=== PATIENT | female | born 1940 | race Caucasian/White ===

== ENCOUNTER 2020-04-22 10:38 | Outpatient (CLI) | payer MEDICARE | END 2020-04-22 10:39 | disposition home or self-care (01) | LOC: BICULT 10:38 | PROVIDERS: ATTEND Urology | DX: R82.71 Bacteriuria (principal); R82.998 Other abnormal findings in urine; R31.29 Other microscopic hematuria; N28.1 Cyst of kidney, acquired | CPT/HCPCS: 76770 ==

== ENCOUNTER 2020-10-14 11:45 | Outpatient (CLI) | payer MEDICARE | END 2020-10-14 11:46 | disposition home or self-care (01) | LOC: BICMAMMO 11:45 | PROVIDERS: ATTEND Internal Medicine | DX: Z12.31 Encounter for screening mammogram for malignant neoplasm of breast (principal) | CPT/HCPCS: 77063; 77067 ==

== ENCOUNTER 2021-10-18 09:56 | Outpatient (CLI) | payer MEDICARE | END 2021-10-18 09:57 | disposition home or self-care (01) | LOC: BICMAMMO 09:56 | PROVIDERS: ATTEND Internal Medicine | DX: Z12.31 Encounter for screening mammogram for malignant neoplasm of breast (principal) | CPT/HCPCS: 77063; 77067 ==

== ENCOUNTER 2022-06-15 13:30 | Inpatient (IN) | payer MEDICARE ==
[2022-06-18 14:37] VITALS: BMI 22.3
[2022-06-18 15:10] LABS: Hemoglobin 11.6 g/dL (12.0-15.5); Mean Corpuscular HGB CONC 32.5 g/dL (32.0-36.0); Mean Corpuscular Hemoglobin 31.4 pg (27.0-33.0); Mean Corpuscular Volume 96.7 fl (81.6-98.3); Mean Platelet Volume 11.5 fl (7.4-10.4); Platelet Count 207 10x3/uL (150-450); RBC Distribution Width 13.5 % (11.5-14.5); Red Blood Cell (RBC) Count 3.69 10x6/uL (3.90-5.03); White Blood Cell (WBC) Count 4.6 10x3/uL (3.5-10.5)
[2022-06-18 15:24] LABS: PTT 25.6 sec (22.0-33.0); Prothrombin Time 10.3 sec (9.5-12.1)
[2022-06-18 15:25] LABS: Anion Gap 15 mmol/L (10-20); BUN (Urea Nitrogen) 26 mg/dL (9.8-20.1); Calc. Creatinine Clearance 0 mL/min (70-130); Calcium 11.2 mg/dL (7.8-10.44); Carbon Dioxide 30 mmol/L (23-31); Chloride 103 mmol/L (98-107); Estimated GFR 61; Glucose 89 mg/dL (83-110); Potassium 5.1 mmol/L (3.5-5.1); Sodium 143 mmol/L (136-145)
[2022-06-19] MEDS ORDERED: HYDROmorphone 2 MG/ML VIAL ONE (06:14)
[2022-06-19] MEDS ORDERED: Fentanyl 250 MCG/5 ML VIAL ONE (06:14)
[2022-06-19] MEDS ORDERED: Dexmedetomidine 200 MCG/2 ML VIAL ONE (06:15)
[2022-06-19] MEDS ORDERED: PHENYLEPHRINE-NS 100 MCG/ML 10 ML SYRINGE ONE ×2 (06:15→07:55)
[2022-06-19] MEDS ORDERED: Thrombin 5000 UNITS/5 ML VIAL ONE (06:29)
[2022-06-19] MEDS ORDERED: Vancomycin 1 GM VIAL ONE (06:29)
[2022-06-19] MEDS ORDERED: Bacitracin Zinc Ointment 30 gm TUBE ONE (06:30)
[2022-06-19] MEDS ORDERED: CEFAZOLIN 2 GM VIAL ONE (07:11)
[2022-06-19] MEDS ORDERED: Sodium Chloride 0.9% 100 ML ONE (07:11)
[2022-06-19] MEDS ORDERED: Famotidine/PF 20 mg/2ml Vial ONE (07:20)
[2022-06-19] MEDS ORDERED: Dexamethasone 20 MG/5 ML VIAL ONE (07:55)
[2022-06-19] MEDS ORDERED: Metoclopramide HCl 10 MG/2 ML VIAL ONE (07:55)
[2022-06-19] MEDS ORDERED: PROPOFOL 200 MG/20 ML VIAL ONE (07:55)
[2022-06-19] MEDS ORDERED: Ondansetron PF 4 MG/2 ML Vial ONE (07:55)
[2022-06-19] MEDS ORDERED: Rocuronium Bromide 10 MG/ML (10ML VIAL) ONE (07:55)
[2022-06-19] MEDS ORDERED: Lidocaine 1% PF 5 ML VIAL ONE (07:55)
[2022-06-19] MEDS ORDERED: SUGAMMADEX SODIUM 200 MG/2 ML VIAL ONE (11:35)
[2022-06-19] MEDS ORDERED: Promethazine HCl 25 MG/ML VIAL IM PRN (12:18)
[2022-06-19] MEDS ORDERED: PACU-Morphine 4MG/ML VIAL SLOW IVP PRN (12:18)
[2022-06-19] MEDS ORDERED: Meperidine HCl/PF 25 MG/ML VIAL SLOW IVP PRN (12:18)
[2022-06-19] MEDS ORDERED: Morphine Sulfate 2 MG/ML SYRINGE SLOW IVP PRN (12:18)
[2022-06-19] MEDS ORDERED: HYDROmorphone 2 MG/ML VIAL SLOW IVP PRN (12:18)
[2022-06-19] MEDS ORDERED: Ondansetron HCl/PF 4 MG/2 ML Vial IVP PRN (12:18)
[2022-06-19] MEDS ORDERED: diphenhydrAMINE 25 MG CAP PO PRN (12:21)
[2022-06-19] MEDS ORDERED: HYDROcodone/Acetaminophen 7.5/325 mg Tablet PO PRN (12:21)
[2022-06-19] MEDS ORDERED: Fentanyl 100 MCG/2 ML VIAL SLOW IVP PRN (12:21)
[2022-06-19] MEDS ORDERED: HYDROcodone/Acetaminophen 10/325 mg Tablet PO PRN (12:21)
[2022-06-19] MEDS ORDERED: fentaNYL 50 mcg/mL 1 mL Vial ONE ×2 (12:23→12:35)
[2022-06-19] MEDS ORDERED: Cepastat Lozenges 1 LOZ PO PRN (12:25)
[2022-06-19] MEDS ORDERED: Phenol 118 ML BOT PO PRN (12:25)
[2022-06-19] MEDS ORDERED: hydrALAZINE 20 MG/ML VIAL SLOW IVP PRN (12:26)
[2022-06-19] MEDS ORDERED: HYDROmorphone 0.5 MG/0.5 ML SYRINGE ONE (13:48)
[2022-06-19] MEDS: CEFAZOLIN 2 GM in Sodium Chloride 0.9% 100 ML IVPB SCH (17:02)
[2022-06-19] MEDS: Sodium Chloride 0.9% 1,000 ML IV SCH (17:08)
[2022-06-19] MEDS: Ketorolac Tromethamine 30 MG/ML VIAL IVP PRN (20:14)
[2022-06-19] MEDS: Acetaminophen 500 MG TAB PO SCH (22:29)
[2022-06-19] MEDS: Atorvastatin Calcium 40 MG TAB PO SCH (22:29)
[2022-06-19] MEDS: Docusate 100 MG CAP PO SCH (22:29)
[2022-06-20] MEDS: CEFAZOLIN 2 GM in Sodium Chloride 0.9% 100 ML IVPB SCH ×4 (00:24→23:33)
[2022-06-20] MEDS: Sodium Chloride 0.9% 1,000 ML IV SCH ×2 (01:21→14:51)
[2022-06-20 05:36] LABS: #Monocytes 0.8 thou/uL (0.11-0.59); #Neutrophils 5.3 thou/uL (1.40-6.50); %Basophils 0.1 % (0.0-1.0); %Lymphocytes 14.6 % (21.0-51.0); %Monocytes 10.6 % (0.0-10.0); %Neutrophils 74.4 % (42.0-75.0); Hemoglobin 9.3 g/dL (12.0-16.0); Mean Corpuscular Hemoglobin 30.3 pg (27.0-31.0); Mean Corpuscular Volume 97.7 fl (78.0-98.0); Mean Platelet Volume 11.3 fL (7.4-10.4); Platelet Count 169 10x3/uL (130-400); RBC Distribution Width 13.8 % (11.5-14.5); Red Blood Cell (RBC) Count 3.07 mill/uL (4.20-5.40); White Blood Cell (WBC) Count 7.1 10x3/uL (4.8-10.8)
[2022-06-20 05:58] LABS: Anion Gap 10 mmol/L (10-20); BUN (Urea Nitrogen) 25 mg/dL (9.8-20.1); Calc. Creatinine Clearance 50 mL/min (70-130); Calcium 9.2 mg/dL (7.8-10.44); Carbon Dioxide 27 mmol/L (23-31); Chloride 104 mmol/L (98-107); Estimated GFR 75; Glucose 102 mg/dL (83-110); Potassium 4.4 mmol/L (3.5-5.1); Sodium 137 mmol/L (136-145)
[2022-06-20] MEDS: Acetaminophen 325 MG TAB PO PRN ×2 (06:50→21:36)
[2022-06-20] MEDS: Calcium Carbonate 600 MG TAB PO SCH (10:00)
[2022-06-20] MEDS: Ascorbic Acid 500 mg Chewable Tablet PO SCH (10:00)
[2022-06-20] MEDS: Docusate 100 MG CAP PO SCH ×2 (10:00→20:17)
[2022-06-20] MEDS: Spironolactone 25 MG TAB PO SCH ×2 (10:01→10:03)
[2022-06-20] MEDS: Amlodipine 5 MG TAB PO SCH (10:04)
[2022-06-20] MEDS: Polyethylene Glycol 3350 17 GM Packet PO SCH (10:04)
[2022-06-20] MEDS: Losartan/Hydrochlorothiazide 100 mg/25 mg Tablet PO SCH (10:04)
[2022-06-20] MEDS: Ketorolac Tromethamine 30 MG/ML VIAL IVP PRN (15:16)
[2022-06-20] MEDS: Atorvastatin Calcium 40 MG TAB PO SCH (20:17)
[2022-06-20] MEDS: Acetaminophen 500 MG TAB PO SCH (20:17)
[2022-06-20] MEDS: traZODone HCl 50 MG TAB PO PRN (21:35)
[2022-06-21] MEDS: Sodium Chloride 0.9% 1,000 ML IV SCH ×2 (05:58→16:23)
[2022-06-21] MEDS: Polyethylene Glycol 3350 17 GM Packet PO SCH (09:06)
[2022-06-21] MEDS: CEFAZOLIN 2 GM in Sodium Chloride 0.9% 100 ML IVPB SCH (09:06)
[2022-06-21] MEDS: Calcium Carbonate 600 MG TAB PO SCH (09:07)
[2022-06-21] MEDS: Spironolactone 25 MG TAB PO SCH (09:07)
[2022-06-21] MEDS: Amlodipine 5 MG TAB PO SCH (09:07)
[2022-06-21] MEDS: Ascorbic Acid 500 mg Chewable Tablet PO SCH (09:07)
[2022-06-21] MEDS: Losartan/Hydrochlorothiazide 100 mg/25 mg Tablet PO SCH (09:07)
[2022-06-21] MEDS: Docusate 100 MG CAP PO SCH ×2 (09:08→20:28)
[2022-06-21] MEDS: Ondansetron PF 4 MG/2 ML Vial IVP PRN ×2 (12:35→21:31)
[2022-06-21] MEDS: Atorvastatin Calcium 40 MG TAB PO SCH (20:28)
[2022-06-21] MEDS: Acetaminophen 500 MG TAB PO SCH (20:28)
[2022-06-21] MEDS: Acetaminophen 325 MG TAB PO PRN (22:25)
[2022-06-21] MEDS: traZODone HCl 50 MG TAB PO PRN (22:25)
[2022-06-22] MEDS: Polyethylene Glycol 3350 17 GM Packet PO SCH (08:24)
[2022-06-22] MEDS: Losartan/Hydrochlorothiazide 100 mg/25 mg Tablet PO SCH (08:24)
[2022-06-22] MEDS: Sodium Chloride 0.9% 1,000 ML IV SCH ×2 (08:24→22:07)
[2022-06-22] MEDS: Calcium Carbonate 600 MG TAB PO SCH (08:24)
[2022-06-22] MEDS: Amlodipine 5 MG TAB PO SCH (08:25)
[2022-06-22] MEDS: Ascorbic Acid 500 mg Chewable Tablet PO SCH (08:25)
[2022-06-22] MEDS: Spironolactone 25 MG TAB PO SCH (08:25)
[2022-06-22] MEDS: Docusate 100 MG CAP PO SCH ×2 (08:25→20:05)
[2022-06-22] MEDS: tiZANidine HCl 4 MG TAB PO PRN ×2 (09:43→20:06)
[2022-06-22] MEDS: Atorvastatin Calcium 40 MG TAB PO SCH (20:05)
[2022-06-22] MEDS: Acetaminophen 500 MG TAB PO SCH (20:05)
[2022-06-22] MEDS: Ketorolac Tromethamine 30 MG/ML VIAL IVP PRN (21:41)
[2022-06-22] MEDS: traZODone HCl 50 MG TAB PO PRN (21:43)
[2022-06-23] MEDS: Losartan/Hydrochlorothiazide 100 mg/25 mg Tablet PO SCH (09:16)
[2022-06-23] MEDS: Calcium Carbonate 600 MG TAB PO SCH (09:16)
[2022-06-23] MEDS: Polyethylene Glycol 3350 17 GM Packet PO SCH (09:16)
[2022-06-23] MEDS: Amlodipine 5 MG TAB PO SCH (09:17)
[2022-06-23] MEDS: Docusate 100 MG CAP PO SCH ×2 (09:17→21:47)
[2022-06-23] MEDS: Ascorbic Acid 500 mg Chewable Tablet PO SCH (09:17)
[2022-06-23] MEDS: Spironolactone 25 MG TAB PO SCH (09:17)
[2022-06-23] MEDS: Sodium Chloride 0.9% 1,000 ML IV SCH ×2 (10:36→23:22)
[2022-06-23] MEDS: Atorvastatin Calcium 40 MG TAB PO SCH (21:47)
[2022-06-23] MEDS: Acetaminophen 500 MG TAB PO SCH (21:47)
[2022-06-23] MEDS: traZODone HCl 50 MG TAB PO PRN (21:47)
[2022-06-24] MEDS: tiZANidine HCl 4 MG TAB PO PRN ×2 (05:27→18:41)
[2022-06-24] MEDS ORDERED: Milk Of Magnesia 30 ML UDCUP PO PRN (08:35)
[2022-06-24] MEDS: Spironolactone 25 MG TAB PO SCH (10:09)
[2022-06-24] MEDS: Amlodipine 5 MG TAB PO SCH (10:10)
[2022-06-24] MEDS: Ascorbic Acid 500 mg Chewable Tablet PO SCH (10:10)
[2022-06-24] MEDS: Docusate 100 MG CAP PO SCH ×2 (10:10→20:53)
[2022-06-24] MEDS: Polyethylene Glycol 3350 17 GM Packet PO SCH (10:11)
[2022-06-24] MEDS: Calcium Carbonate 600 MG TAB PO SCH (10:11)
[2022-06-24] MEDS: Losartan/Hydrochlorothiazide 100 mg/25 mg Tablet PO SCH (10:11)
[2022-06-24] MEDS: Sodium Chloride 0.9% 1,000 ML IV SCH (10:26)
[2022-06-24] MEDS: traZODone HCl 50 MG TAB PO PRN (20:53)
[2022-06-24] MEDS: Acetaminophen 500 MG TAB PO SCH (20:53)
[2022-06-24] MEDS: Atorvastatin Calcium 40 MG TAB PO SCH (20:53)
[2022-06-25] MEDS: Sodium Chloride 0.9% 1,000 ML IV SCH ×2 (01:09→17:12)
[2022-06-25] MEDS: Losartan/Hydrochlorothiazide 100 mg/25 mg Tablet PO SCH (08:46)
[2022-06-25] MEDS: Amlodipine 5 MG TAB PO SCH (08:47)
[2022-06-25] MEDS: Calcium Carbonate 600 MG TAB PO SCH (08:49)
[2022-06-25] MEDS: Docusate 100 MG CAP PO SCH (08:49)
[2022-06-25] MEDS: Spironolactone 25 MG TAB PO SCH (08:49)
[2022-06-25] MEDS: Ascorbic Acid 500 mg Chewable Tablet PO SCH (08:50)
[2022-06-25] MEDS: Polyethylene Glycol 3350 17 GM Packet PO SCH (09:03)
[2022-06-25] MEDS: tiZANidine HCl 4 MG TAB PO PRN (13:19)
[2022-06-25 15:49] VITALS: BP 111/71; TEMP 97.4
== END 2022-06-25 20:10 | DRG 454 ==
LOC: SURG A 06-19 05:47 → SURG B 06-19 15:59
PROVIDERS: ADMIT Surgery; ATTEND Surgery
PROC: 0RG2070 Fusion of 2 or more Cervical Vertebral Joints with Autologous Tissue Substitute, Anterior Approach, Anterior Column, Open Approach (ICD-10-PCS; principal; 2022-06-19)
PROC: 0RG20K1 Fusion of 2 or more Cervical Vertebral Joints with Nonautologous Tissue Substitute, Posterior Approach, Posterior Column, Open Approach (ICD-10-PCS; 2022-06-19)
PROC: 0RB30ZZ Excision of Cervical Vertebral Disc, Open Approach (ICD-10-PCS; 2022-06-19)
PROC: 01N10ZZ Release Cervical Nerve, Open Approach (ICD-10-PCS; 2022-06-19)
DX: M48.02 Spinal stenosis, cervical region (principal); G95.9 Disease of spinal cord, unspecified; M50.021 Cervical disc disorder at C4-C5 level with myelopathy; M50.121 Cervical disc disorder at C4-C5 level with radiculopathy; E78.5 Hyperlipidemia, unspecified; I10 Essential (primary) hypertension; R49.0 Dysphonia; Z90.710 Acquired absence of both cervix and uterus; Z79.82 Long term (current) use of aspirin
CPT/HCPCS: 36415; 80048; 85025; 85027; 85610; 85730; 86850; 86900; 86901; 93005; 93010; 93970; C1713; C1768; C1776; J1100; J1170; J1885; J2405; J2704; J2765; J3010; J3370; J3490; J7050; S0028

== ENCOUNTER 2022-06-18 13:20 | Outpatient (CLI) | payer MEDICARE | END 2022-06-18 13:21 | disposition home or self-care (01) | LOC: LABBT 13:20 | PROVIDERS: ATTEND Surgery | DX: Z01.810 Encounter for preprocedural cardiovascular examination (principal); M48.02 Spinal stenosis, cervical region; G95.9 Disease of spinal cord, unspecified; M54.12 Radiculopathy, cervical region | CPT/HCPCS: 93005; 93010 ==

== ENCOUNTER 2022-10-30 13:22 | Outpatient (CLI) | payer MEDICARE | END 2022-10-30 13:23 | disposition home or self-care (01) | LOC: BICMAMMO 13:22 | PROVIDERS: ATTEND Internal Medicine | DX: Z12.31 Encounter for screening mammogram for malignant neoplasm of breast (principal); Z80.3 Family history of malignant neoplasm of breast | CPT/HCPCS: 77063; 77067 ==

== ENCOUNTER 2022-11-23 11:48 | Outpatient (CLI) | payer MEDICARE | END 2022-11-23 11:49 | disposition home or self-care (01) | LOC: BICRAD 11:48 | PROVIDERS: ATTEND Family Medicine | DX: M47.816 Spondylosis without myelopathy or radiculopathy, lumbar region (principal); W19.XXXA Unspecified fall, initial encounter; M41.9 Scoliosis, unspecified; M47.815 Spondylosis without myelopathy or radiculopathy, thoracolumbar region; M85.88 Other specified disorders of bone density and structure, other site | CPT/HCPCS: 72100 ==

== ENCOUNTER 2023-02-28 13:19 | Outpatient (CLI) | payer MEDICARE | END 2023-02-28 13:20 | disposition home or self-care (01) | LOC: BICCT 13:19 | PROVIDERS: ATTEND Surgery | DX: M48.02 Spinal stenosis, cervical region (principal); R26.89 Other abnormalities of gait and mobility; M47.812 Spondylosis without myelopathy or radiculopathy, cervical region; M47.813 Spondylosis without myelopathy or radiculopathy, cervicothoracic region; Z98.1 Arthrodesis status | CPT/HCPCS: 72125; 72141 ==

== ENCOUNTER 2023-03-14 23:18 | Inpatient (IN) | payer MEDICARE ==
[2023-03-14] MEDS ORDERED: Ondansetron PF 4 MG/2 ML Vial ONE (23:48)
[2023-03-14] MEDS ORDERED: Morphine 4 MG/ML VIAL ONE (23:48)
[2023-03-15] MEDS ORDERED: Ondansetron PF 4 MG/2 ML Vial IVP PRN (02:51)
[2023-03-15] MEDS ORDERED: Acetaminophen 500 MG TAB PO PRN (02:51)
[2023-03-15 03:04] VITALS: BMI 23.6
[2023-03-15] MEDS: Sodium Chloride 0.9% 1,000 ML IV SCH (03:32)
[2023-03-15] MEDS: Morphine 4 MG/ML VIAL SLOW IVP SCH (03:32)
[2023-03-15] MEDS: traMADol HCl 50 MG TAB PO PRN (03:33)
[2023-03-15 05:01] LABS: #Monocytes 0.4 thou/uL (0.11-0.59); #Neutrophils 6.5 thou/uL (1.40-6.50); %Basophils 0.3 % (0.0-1.0); %Lymphocytes 9.3 % (21.0-51.0); %Monocytes 5.5 % (0.0-10.0); %Neutrophils 84.5 % (42.0-75.0); Hematocrit 27.4 % (36.0-47.0); Hemoglobin 8.9 g/dL (12.0-16.0); Mean Corpuscular HGB CONC 32.5 g/dL (32.0-36.0); Mean Corpuscular Volume 98.6 fl (78.0-98.0); Mean Platelet Volume 11.3 fL (7.4-10.4); Platelet Count 176 10x3/uL (130-400); RBC Distribution Width 13.6 % (11.5-14.5); Red Blood Cell (RBC) Count 2.78 mill/uL (4.20-5.40); White Blood Cell (WBC) Count 7.6 10x3/uL (4.8-10.8)
[2023-03-15 05:26] LABS: ALT (SGPT) 30 U/L (8-55); AST (SGOT) 31 U/L (5-34); Albumin 3.8 g/dL (3.4-4.8); Alkaline Phosphatase 68 U/L (40-110); Anion Gap 9 mmol/L (10-20); BUN (Urea Nitrogen) 33 mg/dL (9.8-20.1); Bilirubin, Total 0.4 mg/dL (0.2-1.2); Calc. Creatinine Clearance 50 mL/min (70-130); Calcium 9.8 mg/dL (7.8-10.44); Carbon Dioxide 31 mmol/L (23-31); Chloride 104 mmol/L (98-107); Estimated GFR 73; Globulin 2.5 g/dL (2.4-3.5); Glucose 116 mg/dL (83-110); Protein, Total 6.3 g/dL (5.8-8.1); Sodium 140 mmol/L (136-145)
[2023-03-15 07:53] LABS: #Monocytes 0.4 thou/uL (0.11-0.59); %Basophils 0.3 % (0.0-1.0); %Lymphocytes 12.4 % (21.0-51.0); %Monocytes 6.9 % (0.0-10.0); %Neutrophils 80.1 % (42.0-75.0); Hematocrit 26.6 % (36.0-47.0); Hemoglobin 8.5 g/dL (12.0-16.0); Mean Corpuscular Hemoglobin 31.5 pg (27.0-31.0); Mean Corpuscular Volume 98.5 fl (78.0-98.0); Mean Platelet Volume 11.1 fL (7.4-10.4); Platelet Count 171 10x3/uL (130-400); RBC Distribution Width 13.6 % (11.5-14.5); White Blood Cell (WBC) Count 6.2 10x3/uL (4.8-10.8)
[2023-03-15 08:11] LABS: INR-International Normal Ratio 1.1; PTT 30.5 sec (22.9-36.1); Prothrombin Time 13.9 sec (12.0-14.7)
[2023-03-15] MEDS ORDERED: CEFAZOLIN 2 GM in Sodium Chloride 0.9% 100 ML IVPB SCH (09:00)
[2023-03-15] MEDS ORDERED: CEFAZOLIN 2 GM VIAL ONE (12:05)
[2023-03-15] MEDS ORDERED: Sodium Chloride 0.9% 100 ML ONE (12:05)
[2023-03-15] MEDS ORDERED: PROPOFOL 20 ML ONE (12:18)
[2023-03-15] MEDS ORDERED: Lidocaine 1% PF 5 ML VIAL ONE (12:18)
[2023-03-15] MEDS ORDERED: Ondansetron PF 4 MG/2 ML Vial ONE (12:18)
[2023-03-15] MEDS ORDERED: fentaNYL PF 100 MCG/2 ML SYRINGE ONE (12:19)
[2023-03-15] MEDS ORDERED: ePHEDrine Sulfate 50 MG/10 ML VIAL ONE (14:12)
[2023-03-15] MEDS: Ketorolac Tromethamine 30 MG (1 mL) VIAL IVP SCH ×2 (15:50→20:47)
[2023-03-15 19:51] LABS: #Monocytes 0.8 thou/uL (0.11-0.59); #Neutrophils 5.1 thou/uL (1.40-6.50); %Basophils 0.4 % (0.0-1.0); %Eosinophils 0.2 % (0.0-10.0); %Lymphocytes 27.6 % (21.0-51.0); %Monocytes 9.6 % (0.0-10.0); Hematocrit 25.3 % (36.0-47.0); Hemoglobin 7.5 g/dL (12.0-16.0); Mean Corpuscular HGB CONC 29.6 g/dL (32.0-36.0); Mean Corpuscular Hemoglobin 31.9 pg (27.0-31.0); Mean Platelet Volume 11.4 fL (7.4-10.4); Platelet Count 136 10x3/uL (130-400); RBC Distribution Width 13.8 % (11.5-14.5); Red Blood Cell (RBC) Count 2.35 mill/uL (4.20-5.40); White Blood Cell (WBC) Count 8.3 10x3/uL (4.8-10.8)
[2023-03-15 19:59] LABS: Mean Corpuscular Volume 107.7 fl (78.0-98.0)
[2023-03-15] MEDS: Rosuvastatin 20 MG TAB PO SCH (20:47)
[2023-03-15] MEDS: CEFAZOLIN 2 GM in Sodium Chloride 0.9% 100 ML IVPB SCH (20:48)
[2023-03-15] MEDS: traZODone HCl 50 MG TAB PO SCH (20:48)
[2023-03-16] MEDS: Morphine 2 MG/ML VIAL SLOW IVP PRN (00:41)
[2023-03-16 07:51] LABS: #Monocytes 0.5 thou/uL (0.11-0.59); #Neutrophils 3.6 thou/uL (1.40-6.50); %Basophils 0.4 % (0.0-1.0); %Eosinophils 0.4 % (0.0-10.0); %Lymphocytes 16.5 % (21.0-51.0); %Monocytes 9.4 % (0.0-10.0); %Neutrophils 73.1 % (42.0-75.0); Hematocrit 23.4 % (36.0-47.0); Hemoglobin 7.6 g/dL (12.0-16.0); Mean Corpuscular HGB CONC 32.5 g/dL (32.0-36.0); Mean Corpuscular Hemoglobin 31.7 pg (27.0-31.0); Mean Platelet Volume 11.5 fL (7.4-10.4); Platelet Count 124 10x3/uL (130-400); RBC Distribution Width 14.2 % (11.5-14.5)
[2023-03-16 08:15] LABS: Mean Corpuscular Volume 97.5 fl (78.0-98.0)
[2023-03-16] MEDS: Ascorbic Acid 500 mg Chewable Tablet PO SCH (08:35)
[2023-03-16] MEDS: Ezetimibe 10 MG TAB PO SCH (08:35)
[2023-03-16] MEDS: Mirabegron ER 25 MG ER.TAB PO SCH (08:35)
[2023-03-16] MEDS: Amlodipine 5 MG TAB PO SCH (08:39)
[2023-03-16] MEDS: traMADol HCl 50 MG TAB PO PRN (09:18)
[2023-03-16] MEDS: HYDROcodone/Acetaminophen 5/325 mg Tablet PO PRN (11:59)
[2023-03-16] MEDS: Acetaminophen 325 MG TAB PO SCH (12:00)
[2023-03-16] MEDS: Melatonin 3 MG TAB PO PRN (21:00)
[2023-03-17 04:58] LABS: Hematocrit 19.8 % (36.0-47.0); Hemoglobin 6.4 g/dL (12.0-16.0)
[2023-03-17] MEDS: Cyclobenzaprine 10 MG TAB PO PRN (09:57)
[2023-03-17] MEDS: Melatonin 3 MG TAB PO SCH (20:48)
[2023-03-17] MEDS: Senokot S 8.6-50 MG TAB PO SCH (20:49)
[2023-03-18 05:26] LABS: #Eosinphils 0.1 thou/uL (0.0-0.7); #Monocytes 0.5 thou/uL (0.11-0.59); #Neutrophils 1.8 thou/uL (1.40-6.50); %Basophils 0.5 % (0.0-1.0); %Eosinophils 2.1 % (0.0-10.0); %Lymphocytes 37.1 % (21.0-51.0); %Monocytes 12.3 % (0.0-10.0); %Neutrophils 47.7 % (42.0-75.0); Hematocrit 28.3 % (36.0-47.0); Mean Corpuscular HGB CONC 33.6 g/dL (32.0-36.0); Mean Corpuscular Hemoglobin 30.6 pg (27.0-31.0); Mean Corpuscular Volume 91.3 fl (78.0-98.0); Mean Platelet Volume 10.9 fL (7.4-10.4); Platelet Count 118 10x3/uL (130-400); RBC Distribution Width 15.5 % (11.5-14.5); White Blood Cell (WBC) Count 3.8 10x3/uL (4.8-10.8)
[2023-03-18 05:27] LABS: Hemoglobin 9.5 g/dL (12.0-16.0)
[2023-03-18 05:52] LABS: Anion Gap 6 mmol/L (10-20); BUN (Urea Nitrogen) 19 mg/dL (9.8-20.1); Calc. Creatinine Clearance 63 mL/min (70-130); Calcium 8.7 mg/dL (7.8-10.44); Carbon Dioxide 30 mmol/L (23-31); Chloride 105 mmol/L (98-107); Estimated GFR 87; Glucose 93 mg/dL (83-110); Potassium 3.9 mmol/L (3.5-5.1); Sodium 137 mmol/L (136-145)
[2023-03-18] MEDS: Polyethylene Glycol 3350 17 GM Packet PO SCH (08:27)
[2023-03-18] MEDS ORDERED: Enoxaparin 40 MG (0.4 mL) SYRINGE SC SCH (09:00)
[2023-03-19 05:24] LABS: Hematocrit 26.5 % (36.0-47.0); Hemoglobin 8.8 g/dL (12.0-16.0)
[2023-03-19] MEDS: Enoxaparin 40 MG (0.4 mL) SYRINGE SC SCH (08:55)
[2023-03-20] MEDS ORDERED: hydrALAZINE 20 MG/ML VIAL SLOW IVP PRN (14:07)
[2023-03-21 07:34] VITALS: BP 148/71; TEMP 98.1
== END 2023-03-21 11:50 | disposition swing bed (61) | DRG 481 ==
LOC: ERS 23:18 → SURG B 03-15 01:18
PROVIDERS: ADMIT Student in an Organized Health Care Education/Training Program; ATTEND Student in an Organized Health Care Education/Training Program
PROC: 0QSC06Z Reposition Left Lower Femur with Intramedullary Internal Fixation Device, Open Approach (ICD-10-PCS; principal; 2023-03-15)
PROC: 0QSB06Z Reposition Right Lower Femur with Intramedullary Internal Fixation Device, Open Approach (ICD-10-PCS; 2023-03-15)
PROC: 30233N1 Transfusion of Nonautologous Red Blood Cells into Peripheral Vein, Percutaneous Approach (ICD-10-PCS; 2023-03-16)
DX: S72.402A Unspecified fracture of lower end of left femur, initial encounter for closed fracture (principal); D62 Acute posthemorrhagic anemia; G95.89 Other specified diseases of spinal cord; S72.401A Unspecified fracture of lower end of right femur, initial encounter for closed fracture; W18.30XA Fall on same level, unspecified, initial encounter; Z79.899 Other long term (current) drug therapy; E78.5 Hyperlipidemia, unspecified; I10 Essential (primary) hypertension; Z96.653 Presence of artificial knee joint, bilateral; Z98.49 Cataract extraction status, unspecified eye; Z90.710 Acquired absence of both cervix and uterus
CPT/HCPCS: 36415; 36430; 71045; 80048; 80053; 85014; 85018; 85025; 85610; 85730; 86850; 86900; 86901; 93005; 96374; 96375; C1713; J1650; J1885; J2270; J2272; J2405; J2704; J3490; J7050; P9016

== ENCOUNTER 2023-11-07 13:53 | Outpatient (CLI) | payer MEDICARE | END 2023-11-07 13:54 | disposition home or self-care (01) | LOC: BICMAMMO 13:53 | PROVIDERS: ATTEND Physician Assistant | DX: Z12.31 Encounter for screening mammogram for malignant neoplasm of breast (principal); Z80.3 Family history of malignant neoplasm of breast | CPT/HCPCS: 77067 ==

== ENCOUNTER 2024-02-14 13:10 | Outpatient (CLI) | payer MEDICARE ==
[2024-02-14 14:14] LABS: #Basophils Less than 0.03 10x3/uL (0.0-0.2); #Eosinophils Less than 0.03 10x3/uL (0.0-0.7); %Basophils 0.6 % (0.0-1.0); %Eosinophils 0.6 % (0.0-10.0); %Lymphocytes 39.4 % (21.0-51.0); %Monocytes 9.3 % (0.0-10.0); %Neutrophils 49.8 % (42.0-75.0); Hematocrit 35.5 % (36.0-47.0); Hemoglobin 11.5 g/dL (12.0-16.0); Mean Corpuscular HGB CONC 32.4 g/dL (32.0-36.0); Mean Corpuscular Hemoglobin 31.2 pg (27.0-31.0); Mean Corpuscular Volume 96.2 fL (78.0-98.0); Mean Platelet Volume 11.4 fL (7.4-10.4); Platelet Count 149 10x3/uL (130-400); RBC Distribution Width 13.8 % (11.5-14.5); Red Blood Cell (RBC) Count 3.69 mill/uL (4.20-5.40)
[2024-02-14 14:31] LABS: Anion Gap 11 mmol/L (10-20); BUN (Urea Nitrogen) 20 mg/dL (9.8-20.1); Calc. Creatinine Clearance 0 mL/min (70-130); Carbon Dioxide 29 mmol/L (23-31); Chloride 105 mmol/L (98-107); Potassium 4.4 mmol/L (3.5-5.1); Sodium 141 mmol/L (136-145)
[2024-02-14 14:32] LABS: Calcium 10.1 mg/dL (7.8-10.44); Estimated GFR 79; Glucose 104 mg/dL (83-110)
== END 2024-02-14 13:11 | disposition home or self-care (01) ==
LOC: LABBT 13:10
PROVIDERS: ATTEND Orthopaedic Surgery Hand Surgery
DX: Z01.818 Encounter for other preprocedural examination (principal); G56.02 Carpal tunnel syndrome, left upper limb; M65.342 Trigger finger, left ring finger; M65.332 Trigger finger, left middle finger; M72.0 Palmar fascial fibromatosis [Dupuytren]; M24.542 Contracture, left hand
CPT/HCPCS: 80048; 85025; 93005; 93010

== ENCOUNTER 2024-02-18 06:28 | Day surgery (SDC) | payer MEDICARE ==
[2024-02-14 13:30] VITALS: BMI 24.0
[2024-02-18] MEDS ORDERED: Dexamethasone 4 mg/ml Vial ONE (09:46)
[2024-02-18] MEDS ORDERED: Ondansetron PF 4 MG/2 ML Vial ONE (09:46)
[2024-02-18] MEDS ORDERED: PROPOFOL 20 ML ONE ×2 (09:46→13:58)
[2024-02-18] MEDS ORDERED: fentaNYL PF 100 MCG/2 ML SYRINGE ONE ×2 (09:46→15:39)
[2024-02-18] MEDS ORDERED: Bacitracin Zinc Ointment 30 gm TUBE ONE (10:53)
[2024-02-18] MEDS ORDERED: Bupivacaine PF 0.5% 30 ML VIAL ONE (10:53)
[2024-02-18] MEDS ORDERED: CEFAZOLIN 2 GM VIAL ONE (11:55)
[2024-02-18] MEDS ORDERED: Vasopressin 20 UNITS/ML VIAL ONE (12:15)
[2024-02-18] MEDS ORDERED: Glycopyrrolate 0.2 MG/ML 5 ML SYRINGE ONE (13:58)
[2024-02-18] MEDS ORDERED: ePHEDrine Sulfate 50 MG/10 ML VIAL ONE (13:59)
== END 2024-02-18 15:32 | disposition home or self-care (01) ==
LOC: SDC 06:28
PROVIDERS: ATTEND Orthopaedic Surgery Hand Surgery
PROC: 0LN80ZZ Release Left Hand Tendon, Open Approach (ICD-10-PCS; principal; 2024-02-18)
PROC: 0LN80ZZ Release Left Hand Tendon, Open Approach (ICD-10-PCS; 2024-02-18)
PROC: 0LN80ZZ Release Left Hand Tendon, Open Approach (ICD-10-PCS; 2024-02-18)
PROC: 0LN80ZZ Release Left Hand Tendon, Open Approach (ICD-10-PCS; 2024-02-18)
PROC: 01N50ZZ Release Median Nerve, Open Approach (ICD-10-PCS; 2024-02-18)
PROC: 0JBK0ZZ Excision of Left Hand Subcutaneous Tissue and Fascia, Open Approach (ICD-10-PCS; 2024-02-18)
DX: G56.02 Carpal tunnel syndrome, left upper limb (principal); M65.342 Trigger finger, left ring finger; M65.332 Trigger finger, left middle finger; M72.0 Palmar fascial fibromatosis [Dupuytren]; E78.00 Pure hypercholesterolemia, unspecified; G56.22 Lesion of ulnar nerve, left upper limb; R25.2 Cramp and spasm; M24.50 Contracture, unspecified joint; M54.12 Radiculopathy, cervical region; G96.9 Disorder of central nervous system, unspecified; I10 Essential (primary) hypertension; Z90.710 Acquired absence of both cervix and uterus; Z98.890 Other specified postprocedural states; Z79.899 Other long term (current) drug therapy
CPT/HCPCS: 26055 ×2; 26123; 64642; 64721; A6223; J0585; J0665; J1100; J2405; J2704

== ENCOUNTER 2024-09-16 08:21 | Outpatient (CLI) | payer MEDICARE | END 2024-09-16 08:22 | disposition home or self-care (01) | LOC: CT 08:21 | PROVIDERS: ATTEND Orthopaedic Surgery Hand Surgery | DX: M47.812 Spondylosis without myelopathy or radiculopathy, cervical region (principal); I67.9 Cerebrovascular disease, unspecified; G96.9 Disorder of central nervous system, unspecified; Z98.890 Other specified postprocedural states | CPT/HCPCS: 72125 ==

== ENCOUNTER 2024-11-09 10:52 | Outpatient (CLI) | payer MEDICARE | END 2024-11-09 10:53 | disposition home or self-care (01) | LOC: BICMAMMO 10:52 | PROVIDERS: ATTEND Physician Assistant | DX: Z12.31 Encounter for screening mammogram for malignant neoplasm of breast (principal); Z80.3 Family history of malignant neoplasm of breast | CPT/HCPCS: 77063; 77067 ==